=== PATIENT | female | born 1985 | race Caucasian/White ===

== ENCOUNTER 2021-06-24 20:56 | Emergency (ER) | payer BC ==
[2021-06-24 21:11] VITALS: BP 116/81; PULSE 76; TEMP 98.3; BMI 22.4
[2021-06-24] MEDS ORDERED: TETANUS AND DIPHTHERIA TOXOID 0.5 ML DISP.SYRIN IM ONE (22:16)
== END 2021-06-24 23:03 | disposition home or self-care (01) ==
LOC: JERFT 20:56
PROC: 3E0234Z Introduction of Serum, Toxoid and Vaccine into Muscle, Percutaneous Approach (ICD-10-PCS; principal; 2021-06-24)
DX: S61.211A Laceration without foreign body of left index finger without damage to nail, initial encounter (principal); W26.0XXA Contact with knife, initial encounter
CPT/HCPCS: 99284-25